=== PATIENT | female | born 1990 | race Caucasian/White ===

== ENCOUNTER 2021-02-01 20:05 | Emergency (ER) | payer OTHER, SELFPAY ==
--- NOTE | ~2021-02-01 | US_ITS ---
EXAMINATION: US OB <=14 wk fetus w TV DATE: 02/01/2021 22:01 INDICATION: Right lower quadrant abdominal pain. Positive test. TECHNIQUE: Real-time transabdominal and transvaginal pelvic ultrasound was performed. COMPARISON: None. FINDINGS: TRANSABDOMINAL ULTRASOUND: The uterus measures 8.9 x 5.1 x 3.4 cm. TRANSVAGINAL ULTRASOUND: There is no visible intrauterine gestational sac. The endometrial complex me asures 6 mm in thickness. There is an intrauterine device in expected position. The right ovary measu res 2.6 x 2.8 x 1.8 cm. The left ovary measures 2.2 x 1.3 x 1.2 cm. There is no free fluid in the pel vis. IMPRESSION: 1. No visible intrauterine gestational sac, which may be normal in early . Ectopic pregnanc y and spontaneous are not excluded. Serial beta-hCGs are recommended. 2. Intrauterine device in expected position. Reviewed, dictated and finalized at location A. IMPRESSION: 1. No visible intrauterine gestational sac, which may be normal in early pregn stacie. Ectopic and spontaneous are not excluded. Serial beta- hCGs are recommended. 2. Intrauterine device in expected position.
[2021-02-01 20:07] VITALS: BP 127/87; PULSE 67; RESP 14; TEMP 36.6; O2SAT 100
[2021-02-01 20:30] LABS: Basophils Absolute Auto 0.1 K/mm3 (0.0-0.1); Basophils Percent Auto 0.5 % (0.2-1.2); Eosinophils Absolute Auto 0.2 K/mm3 (0-0.3); Eosinophils Percent Auto 1.8 % (0-4.4); Hematocrit 37.7 % (37.0-47.0); Hemoglobin 12.7 g/dL (12.0-15.0); Immature Granulocyte Absolute 0.03 K/mm3 (0.00-0.031); Immature Granulocyte Percent A 0.3 % (0-0.5); Lymphocytes Absolute Auto 2.79 K/mm3 (0.9-3.2); Lymphocytes Percent Auto 29.6 % (18.3-44.2); Mean Corpuscular HGB Conc 33.7 g/dl (32-36); Mean Corpuscular Hemoglobin 31.8 pg (26-34); Mean Corpuscular Volume 94.5 fl (80-100); Mean Platelet Volume 9.2 fl (7.4-10.4); Monocytes Absolute Auto 0.7 K/mm3 (0.1-0.6); Monocytes Percent Auto 6.9 % (2.6-8.5); Neutrophils Absolute Auto 5.7 K/mm3 (1.3-6.7); Neutrophils Percent Auto 60.9 % (45.5-73.1); Platelet Count Result 249 k/mm3 (150-375); Red Blood Count 3.99 M/mm3 (4.2-5.4); Red Cell Distribution Width 12.4 % (11.5-14.5); White Blood Count 9.4 K/mm3 (4.5-10.0)
[2021-02-01 20:34] LABS: Add Urine Microscopic? YES; Appearance Urine Clear (Clear); Bacteria Urine Trace /hpf; Bilirubin Urine Negative (Negative); Blood Urine 3+ (Negative); Color Urine Straw (Yellow); Glucose Urine UA Negative (Negative); Ketones Urine Negative (Negative); Leukocyte Esterase Ur 1+ LEU/UL (Negative); Mucus Urine Rare /lpf; Nitrate Urine Negative (Negative); Protein Urine Negative (Negative); RBC Urine 0-2 /hpf (0-2); Specific Grav Ur 1.006 (1.001-1.035); Squamous Epithelial Cell Urine Many /hpf (Few); Urobilinogen Urine Negative mg/dL (<2.0)
--- NOTE | 2021-02-01 20:35 | PC.NURSE ---
EDMD presented to bedside. Pt presents to ED with complaints of vaginal bleeding and right side abdominal pain for the past couple days. Per pt, she has an IUD that has been in place for 2 years and recently had a positive test. Pain to right lower quadrant noted with palpation. Pain rated 5/10 at this time and pt refuses pain medication. presented to bedside. Pt denies nvd, fever and chills since onset of symptoms. States she is unsure of last period since IUD placement stopped flow.
[2021-02-01 20:42] VITALS: BP 134/81; PULSE 65; RESP 18; TEMP 36.6; O2SAT 100
--- NOTE | 2021-02-01 20:51 | ED.GENADULT ---
HPI - General Adult General Chief complaint: Vaginal Bleeding Stated complaint: states with IUD in place and bleeding Time Seen by Provider: 02/01/21 20:32 History of Present Illness HPI narrative: Patient is a 30-year-old female presents the emergency department chief complaint of abdominal pain and vaginal spotting. The patient reports she has a Mirena IUD and reports that she noticed that she started spotting over the last several days and has had pain in her right lower quadrant. Patient states the pain is worse with movement patient reports she had a positive home test. The patient states that she is concerned that she has an ectopic as she has a IUD in place. Patient reports she sees the women's care group and had her IUD placed approximately 2 years ago Related Data Allergies Allergy/AdvReac Type Severity Reaction Status Date / Time No Known Allergies Allergy Unverified 11/29/16 13:42 Review of Systems Review of Systems: Narrative: A 10 system review of systems was completed on the patient and is negative except for what is stated in the HPI. Nursing and ancillary documentation was reviewed. PMFSH Comments Past medical history significant for ectopic treated with methotrexate Social history the patient is denies illicit drug use Exam Narrative: Exam Narrative: GENERAL: Well-appearing, well-nourished, and in no acute distress. HEAD: Normocephalic, atraumatic. EYES: PERRLA and EOMI. ENT: Nares clear, no rhinorrhea or epistaxis. Mucous membranes moist. NECK: Supple. CHEST: Clear to auscultation. No respiratory distress. HEART: Regular rate and rhythm. No murmur heard. Normal peripheral pulses. ABDOMEN: Soft, tender to palpation the right lower quadrant, nondistended, normal active bowel sounds. EXTREMITIES: Normal range of motion. No edema. SKIN: Warm, dry, no rash. NEURO: No focal deficits. Alert and oriented x3. PSYCH: Normal mood and affect. Course Course Emergency Course: Ultrasound showed a 2.6 cm heterogeneous hyperechoic mass in the right pelvis this is concerning for possible ectopic. The case was discussed with Dr. Rodriguez who is on-call for the patient's [employer] group. At this time the patient opts for close outpatient follow-up the patient is to call the office in the morning and schedule an appointment for tomorrow. Vital Signs Vital signs: Vital Signs Temperature 36.6 C 02/01/21 20:07 Pulse Rate 67 02/01/21 20:07 Respiratory Rate 14 02/01/21 20:07 Blood Pressure 127/87 02/01/21 20:07 Pulse Oximetry 100 02/01/21 20:07 Temperature 36.6 C 02/01/21 20:42 Pulse Rate 73 02/01/21 22:18 Respiratory Rate 18 02/01/21 20:42 Blood Pressure 133/83 02/01/21 22:18 Pulse Oximetry 100 02/01/21 20:42 Medical Decision Making Vital Signs Vital Signs: Vital Signs Temperature 36.6 C 02/01/21 20:07 Pulse Rate 67 02/01/21 20:07 Respiratory Rate 14 02/01/21 20:07 Blood Pressure 127/87 02/01/21 20:07 Pulse Oximetry 100 02/01/21 20:07 Temperature 36.6 C 02/01/21 20:42 Pulse Rate 73 02/01/21 22:18 Respiratory Rate 18 02/01/21 20:42 Blood Pressure 133/83 02/01/21 22:18 Pulse Oximetry 100 02/01/21 20:42 Lab Data Result diagrams: 02/01/21 20:19 Labs: Lab Results 02/01/21 02/01/21 02/01/21 Range/Units 20:19 20:19 20:19 WBC 9.4 (4.5-10.0) K/mm3 RBC 3.99 L (4.2-5.4) M/mm3 Hgb 12.7 (12.0-15.0) g/dL Hct 37.7 (37.0-47.0) % MCV 94.5 (80-100) fl MCH 31.8 (26-34) pg MCHC 33.7 (32-36) g/dl RDW 12.4 (11.5-14.5) % Plt Count 249 (150-375) k/mm3 MPV 9.2 (7.4-10.4) fl Immature Gran % (Auto) 0.3 (0-0.5) % Neut % (Auto) 60.9 (45.5-73.1) % Lymph % (Auto) 29.6 (18.3-44.2) % [place] % (Auto) 6.9 (2.6-8.5) % Eos % (Auto) 1.8 (0-4.4) % Baso % (Auto) 0.5 (0.2-1.2) % Lymph # (Auto) 2.79 (0.9-3.2) K/mm3 [place]
--- NOTE | 2021-02-01 21:42 | PC.NURSE ---
pt to radiology via cart.
--- NOTE | 2021-02-01 22:01 | PC.NURSE ---
pt remains in radiology.
--- NOTE | 2021-02-01 22:07 | PC.NURSE ---
Pt returned from radiology.
[2021-02-01 22:16] VITALS: BP 132/70; PULSE 72
[2021-02-01 22:17] VITALS: BP 120/77; PULSE 68
[2021-02-01 22:18] VITALS: BP 133/83; PULSE 73
[2021-02-02 00:18] VITALS: BP 112/75; PULSE 64; RESP 18; O2SAT 99
== END 2021-02-02 00:21 | disposition home or self-care (01) ==
PROVIDERS: Emergency Provider Emergency Medicine; PCP Internal Medicine
DX: O00.90 Unspecified ectopic pregnancy without intrauterine pregnancy (principal); Z97.5 Presence of (intrauterine) contraceptive device
CPT/HCPCS: 36415; 76801; 76817; 81001; 81025; 84702; 85025; 85461; 99284

== ENCOUNTER 2021-02-02 11:44 | Outpatient (CLI) | payer OTHER, SELFPAY | END 2021-02-02 11:45 | disposition home or self-care (01) | LOC: ANHLAB 11:47 | PROVIDERS: PCP Internal Medicine; Visit Provider Obstetrics & Gynecology | DX: N91.2 Amenorrhea, unspecified (principal) | CPT/HCPCS: 36415; 84702 ==

== ENCOUNTER 2021-02-03 09:35 | Outpatient (CLI) | payer OTHER, SELFPAY | END 2021-02-03 09:36 | disposition home or self-care (01) | PROVIDERS: PCP Internal Medicine; Visit Provider Obstetrics & Gynecology | DX: N91.2 Amenorrhea, unspecified (principal) | CPT/HCPCS: 36415; 84702 ==

== ENCOUNTER 2021-02-04 09:38 | Day surgery (SDC) | payer OTHER, SELFPAY ==
[2021-02-04] VITALS (10 sets, daily range): BP systolic 110–124; BP diastolic 59–90; PULSE 48–85; RESP 10–16; TEMP 36–36.9; O2SAT 99–100
--- NOTE | ~2021-02-04 | US_ITS ---
EXAMINATION: US OB <=14 wk fetus w TV DATE: 02/04/2021 10:25 INDICATION: Ectopic . TECHNIQUE: Real-time transabdominal and transvaginal pelvic ultrasound was performed. COMPARISON: Ultrasound 02/01/2021 FINDINGS: TRANSABDOMINAL ULTRASOUND: The uterus measures 7.6 x 3.8 x 5.2 cm. TRANSVAGINAL ULTRASOUND: There is no visible intrauterine gestational sac. There is an intrauterine d evice in expected position. The right ovary measures 3.1 x 1.9 x 1.7 cm. There is a 3.6 x 3.2 x 3.1 cm mass of mixed echogenicity in the right adnexa. The left ovary measures 3.6 x 3.2 x 3.1 cm. There is no free fluid in the pelvis. IMPRESSION: 1. of unknown location. 2. Intrauterine device in expected position. 3. 3.6 cm mass of mixed echogenicity in right adnexa with increase in size from 2.6 cm on 02/01/21. T he differential diagnosis includes ectopic and less likely hemorrhagic cyst. The change in size makes pedunculated fibroid or neoplasm unlikely. Reviewed, dictated and finalized at location A. IMPRESSION: 1. of unknown location. 2. Intrauterine device in expected position. 3. 3.6 cm mass of mixed echogenicity in right adnexa with increase in size fro m 2.6 cm on 02/01/21. The differential diagnosis includes ectopic and less likely hemorrhagic cyst. The change in size makes pedunculated fibroid or neoplasm unlikely.
[2021-02-04 10:02] LABS: Basophils Absolute Auto 0.1 K/mm3 (0.0-0.1); Basophils Percent Auto 1.1 % (0.2-1.2); Eosinophils Absolute Auto 0.2 K/mm3 (0-0.3); Eosinophils Percent Auto 2.8 % (0-4.4); Hematocrit 39.4 % (37.0-47.0); Hemoglobin 12.9 g/dL (12.0-15.0); Immature Granulocyte Absolute 0.01 K/mm3 (0.00-0.031); Immature Granulocyte Percent A 0.2 % (0-0.5); Lymphocytes Percent Auto 27.8 % (18.3-44.2); Mean Corpuscular HGB Conc 32.7 g/dl (32-36); Mean Corpuscular Hemoglobin 31.2 pg (26-34); Mean Corpuscular Volume 95.4 fl (80-100); Mean Platelet Volume 9.2 fl (7.4-10.4); Monocytes Absolute Auto 0.4 K/mm3 (0.1-0.6); Monocytes Percent Auto 6.2 % (2.6-8.5); Neutrophils Percent Auto 61.9 % (45.5-73.1); Platelet Count Result 231 k/mm3 (150-375); Red Blood Count 4.13 M/mm3 (4.2-5.4); Red Cell Distribution Width 12.6 % (11.5-14.5); White Blood Count 6.5 K/mm3 (4.5-10.0)
[2021-02-04 10:13] LABS: Alanine Aminotransferase 12 U/L (4-35); Albumin Level 4.4 g/dL (3.5-5.1); Alkaline Phosphatase 50 U/L (38-126); Anion Gap 8 mmol/L (8-16); Aspartate Amino Transferase 24 U/L (14-36); Bilirubin,Total 0.7 mg/dL (0.2-1.3); Blood Urea Nitrogen 13 mg/dL (7-17); Carbon Dioxide 25 mmol/L (22-30); Chloride 107 mmol/L (98-107); Estimated CRCL calculation 90 ml/min; Estimated Glomerular Filt Rate > 60; Glucose 84 mg/dL (65-105); Potassium 4.3 mmol/L (3.4-5.0); Sodium 140 mmol/L (137-145)
[2021-02-04 10:14] LABS: Partial Thromboplastin Time 29.3 SECONDS (22.3-36.8); Prothrombin Time 13.9 Seconds (11.1-14.7)
--- NOTE | 2021-02-04 10:16 | PC.NURSE ---
Pt taken to ultrasound at this time.
[2021-02-04] MEDS: ONDANSETRON INJ 4 MG/2 ML VIAL IV PUSH (10:28)
[2021-02-04] MEDS: MORPHINE SULFATE (*CRX) 4 MG/ML INJ IV PUSH (10:28)
[2021-02-04] MEDS: FAMOTIDINE 20 MG/2 ML VIAL IV PUSH (10:28)
[2021-02-04] MEDS: SODIUM CHLORIDE 0.9% IV 1,000 ML 999 ML IV CONT (10:29)
[2021-02-04 10:30] LABS: Add Urine Microscopic? YES; Appearance Urine Cloudy (Clear); Bacteria Urine Trace /hpf; Bilirubin Urine Negative (Negative); Blood Urine 3+ (Negative); Color Urine Yellow (Yellow); Glucose Urine UA Negative (Negative); Ketones Urine Negative (Negative); Leukocyte Esterase Ur Trace LEU/UL (Negative); Mucus Urine Rare /lpf; Nitrate Urine Negative (Negative); Protein Urine 1+ mg/dL (Negative); RBC Urine >75 /hpf (0-2); Specific Grav Ur 1.017 (1.001-1.035); Squamous Epithelial Cell Urine Many /hpf (Few); Urobilinogen Urine Negative mg/dL (<2.0)
--- NOTE | 2021-02-04 12:11 | ED.GENADULT ---
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 had ultrasound Tuesday and yesterday and now presents noting increasing intensifying pain in the right adnexa radiating up into the abdomen patient notes nausea denies fever patient has history of IUD has also had an ectopic in the past patient is G6, P3 Related Data Home Medications Medication Instructions Recorded Confirmed acyclovir PRN 02/04/21 Allergies Allergy/AdvReac Type Severity Reaction Status Date / Time No Known Allergies Allergy Unverified 11/29/16 13:42 Review of Systems Review of Systems: All systems reviewed & are unremarkable except as noted in HPI and below PMFSH Past Medical History Medical History (Updated 02/04/21 @ 12:14 by Hany Ortiz PA-C) Ectopic Social History Social History (Updated 02/04/21 @ 12:12 by Hany Ortiz PA-C) Smoking status: Never smoker Exam Narrative: Exam Narrative: GENERAL: Well-appearing, well-nourished, uncomfortable and in no acute distress. HEAD: Normocephalic, atraumatic. EYES: PERRLA and EOMI. ENT: Nares clear, no rhinorrhea or epistaxis. Mucous membranes moist. CHEST: Clear to auscultation. No respiratory distress. No wheezes rales or rhonchi HEART: Regular rate and rhythm. No murmur heard. Normal peripheral pulses. ABDOMEN: Soft, tenderness in the right adnexa with voluntary guarding and rebound, nondistended, normal active bowel sounds. EXTREMITIES: Normal range of motion. No edema. SKIN: Warm, dry, no rash. NEURO: No focal deficits. Alert and oriented x3. PSYCH: Normal mood and affect. Course Course Emergency Course: Patient was evaluated the emergency department will go to the OR with Dr. Post for plan of removal of ectopic patient hemodynamically stable vital signs intact and stable patient had improvement with medications and was hydrated Consultations Consultation #1: Spoke with Dr. Post regarding the case he will take the patient to the operating room Date: 02/04/21 Time: 12:13 Vital Signs Vital signs: Vital Signs Temperature 97 F L 02/04/21 09:46 Pulse Rate 66 02/04/21 09:46 Respiratory Rate 16 02/04/21 09:46 Blood Pressure 123/81 02/04/21 09:46 Pulse Oximetry 100 02/04/21 09:46 Temperature 97 F L 02/04/21 09:46 Pulse Rate 66 02/04/21 09:46 Respiratory Rate 16 02/04/21 09:46 Blood Pressure 123/81 02/04/21 09:46 Pulse Oximetry 100 02/04/21 09:46 Medical Decision Making MDM Narrative Medical decision making narrative: Patient with ectopic evaluated the emergency department will be sent to the operating room removal of ectopic Vital Signs Vital Signs: Vital Signs Temperature 97 F L 02/04/21 09:46 Pulse Rate 66 02/04/21 09:46 Respiratory Rate 16 02/04/21 09:46 Blood Pressure 123/81 02/04/21 09:46 Pulse Oximetry 100 02/04/21 09:46 Temperature 97 F L 02/04/21 09:46 Pulse Rate 66 02/04/21 09:46 Respiratory Rate 16 02/04/21 09:46 Blood Pressure 123/81 02/04/21 09:46 Pulse Oximetry 100 02/04/21 09:46 Lab Data Result diagrams: 02/04/21 09:56 02/04/21 09:56 Labs: Lab Results 02/04/21 02/04/21 02/04/21 Range/Units 09:56 09:56 09:56 WBC 6.5 (4.5-10.0) K/mm3 RBC 4.13 L (4.2-5.4) M/mm3 Hgb 12.9 (12.0-15.0) g/dL Hct 39.4 (37.0-47.0) % MCV 95.4 (80-100) fl MCH 31.2 (26-34) pg MCHC 32.7 (32-36) g/dl RDW 12.6 (11.5-14.5) % Plt Count 231 (150
[2021-02-04] MEDS: LACTATED RINGERS 1,000 ML 30 ML IV CONT ×2 (12:30→14:58)
--- NOTE | 2021-02-04 13:12 | WPDANESEPPF ---
Anes - Initial Pre Proc Eval Procedure: Operation Date: 02/04/21 13:30 Proposed Procedures p Diagnostic Laparoscopy Pos Lap - Gustavo Rodriguez MD Date/Time: 02/04/21 13:12 Surgeon: Gustavo Rodriguez MD Pre Op Diagnosis: with IUD/ possible tubal Patient Data Age: 30 Gender: F Height: 5 ft 5 in Weight: 68.25 kg Last Vital Signs Temp 98.4 F 02/04/21 13:00 Pulse 52 L 02/04/21 13:00 Resp 16 02/04/21 13:00 BP 118/90 02/04/21 13:00 Pulse Ox 100 02/04/21 13:00 Allergies Allergy/AdvReac Type Severity Reaction Status Date / Time No Known Allergies Allergy Unverified 02/04/21 12:36 Home Medications Medication Instructions Recorded Confirmed Type acyclovir 400 mg PO BID PRN 02/04/21 02/04/21 History apple cider vinegar 300 mg PO DAILY 02/04/21 02/04/21 History lysine [L-Lysine] 500 mg PO DAILY 02/04/21 02/04/21 History multivit with min-folic acid 1 tablet PO DAILY 02/04/21 02/04/21 History [Women's Multivitamin Gummies] mv,Ca,min-iron [id number] 1 tablet PO DAILY 02/04/21 02/04/21 History [Hair,Skin and Nails] Laboratory Tests 02/04/21 02/04/21 02/04/21 09:56 09:56 09:56 WBC 6.5 K/mm3 K/mm3 (4.5-10.0) RBC 4.13 M/mm3 L M/mm3 (4.2-5.4) Hgb 12.9 g/dL g/dL (12.0-15.0) Hct 39.4 % % (37.0-47.0) MCV 95.4 fl fl (80-100) MCH 31.2 pg pg (26-34) MCHC 32.7 g/dl g/dl (32-36) RDW 12.6 % % (11.5-14.5) Plt Count 231 k/mm3 k/mm3 (150-375) MPV 9.2 fl fl (7.4-10.4) Immature Gran % (Auto) 0.2 % % (0-0.5) Neut % (Auto) 61.9 % % (45.5-73.1) Lymph % (Auto) 27.8 % % (18.3-44.2) [place] % (Auto) 6.2 % % (2.6-8.5) Eos % (Auto) 2.8 % % (0-4.4) Baso % (Auto) 1.1 % % (0.2-1.2) Lymph # (Auto) 1.80 K/mm3 K/mm3 (0.9-3.2) [place] # (Auto) 0.4 K/mm3 K/mm3 (0.1-0.6) Eos # (Auto) 0.2 K/mm3 K/mm3 (0-0.3) Baso # (Auto) 0.1 K/mm3 K/mm3 (0.0-0.1) Abs Immat Gran (auto) 0.01 K/mm3 K/mm3 (0.00-0.031) Absolute Neuts (auto) 4.0 K/mm3 K/mm3 (1.3-6.7) Absolute Nucleated RBC 0.0 K/mm3 K/mm3 (0.0-0.012) Nucleated RBC % 0.0 % % (0.0-0.2) PT 13.9 Seconds Seconds (11.1-14.7) INR 1.0 APTT 29.3 SECONDS SECONDS (22.3-36.8) Sodium 140 mmol/L mmol/L (137-145) Potassium 4.3 mmol/L mmol/L (3.4-5.0) Chloride 107 mmol/L mmol/L (98-107) Carbon Dioxide 25 mmol/L mmol/L (22-30) Anion Gap 8 mmol/L mmol/L (8-16) BUN 13 mg/dL mg/dL (7-17) Creatinine 0.70 mg/dL mg/dL (0.7-1.0) Estim Creat Clear Calc 90 ml/min ml/min Estimated GFR > 60 (59 - ) Glucose 84 mg/dL mg/dL (65-105) Calcium 9.0 mg/dL mg/dL (8.4-10.2) Total Bilirubin 0.7 mg/dL mg/dL (0.2-1.3) AST 24 U/L U/L (14-36) ALT 12 U/L U/L (4-35) Alkaline Phosphatase 50 U/L U/L (38-126) Total Protein 8.0 g/dL g/dL (6.3-8.2) Albumin 4.4 g/dL g/dL (3.5-5.1) Beta HCG, Quant 654.49 mIU/ML mIU/ML Urine Color Urine Appearance Urine pH Ur Specific [place] Urine Protein Urine Glucose (UA) Urine Ketones Ur Blood (Man) Urine Nitrate Urine Bilirubin Urine Urobilinogen Leukocyte Esterase Rfl Urine RBC Urine WBC Ur Squamous Epith Cells Urine Bacteria Urine Mucus 02/04/21 10:19 WBC RBC Hgb Hct MCV MCH MCHC RDW Plt Count MPV Immature Gran % (Auto) Neut % (Auto) Lymph % (Auto) [place] % (A
--- NOTE | 2021-02-04 13:13 | PM.IMHP ---
H&P: HPI History of Present Illness Date/Time: 02/04/21 13:13 this patient is a 30-year-old female with severe pelvic pain, pelvic mass, and positive test. We have been following her for resolving ectopic . Today her pain suddenly became worse. She had presented the emergency department. We have agreed to perform diagnostic laparoscopy to remedy her pain. We also agreed to remove her fallopian tubes. She denies any chest pain or shortness of breath. She denies any nausea, vomiting, fever, chills. She understands surgery has risks. She understands the injury during surgery can result in hospitalization, more surgery, and severe illness. She understands the risk of hemorrhage and infection. Chief Complaint: Pelvic pain Review of Systems Constitutional: Constitutional: Reports no additional constitutional complaints, Denies fatigue, Denies headache(s), Denies lethargy and Denies weakness Eyes: Eyes: Reports no additional eye complaints, Denies blurry vision and Denies photophobia ENT: Reports as per HPI, Denies headache(s) and Denies neck pain Cardiovascular: Cardiovascular: Denies chest pain, Denies diaphoresis, Denies leg edema, Denies palpitations and Denies dyspnea Respiratory: Respiratory: Denies hemoptysis, Denies dyspnea and Denies wheezing Gastrointestinal: Gastrointestinal: Denies abdominal pain, Denies melena, Denies bloating, Denies hematochezia, Denies nausea and Denies vomiting Genitourinary: Genitourinary: Reports no additional female genitourinary complaints Musculoskeletal: Musculoskeletal: Denies joint swelling, Denies neck pain, Denies numbness and Denies stiffness Neurologic: Denies Abnormal speech present, Denies confusion, Denies headache(s), Denies numbness and Denies weakness Psychiatric: Psychiatric: Denies anxiety, Denies confusion, Denies depression, Denies homicidal ideation and Denies suicidal ideation Endocrine: Endocrine: Denies fatigue and Denies palpitations Allergic/Immunologic: Allergic/Immunologic: Denies wheezing PMFSH Past Medical History Medical History (Updated 02/04/21 @ 13:16 by Gustavo Rodriguez MD) Ectopic Social History Social History (Updated 02/04/21 @ 12:12 by Hany Ortiz PA-C) Smoking status: Never smoker Meds Home Medications and Allergies Home Medications Medication Instructions Recorded Confirmed Type acyclovir 400 mg PO BID PRN 02/04/21 02/04/21 History apple cider vinegar 300 mg PO DAILY 02/04/21 02/04/21 History lysine [L-Lysine] 500 mg PO DAILY 02/04/21 02/04/21 History multivit with min-folic acid 1 tablet PO DAILY 02/04/21 02/04/21 History [Women's Multivitamin Gummies] mv,Ca,min-iron [id number] 1 tablet PO DAILY 02/04/21 02/04/21 History [Hair,Skin and Nails] Allergies Allergy/AdvReac Type Severity Reaction Status Date / Time No Known Allergies Allergy Unverified 02/04/21 12:36 Vital Signs Vital Signs - 24 hr 02/04/21 09:46 02/04/21 12:15 02/04/21 13:00 Temperature 97 F L 98.4 F Pulse Rate 66 68 52 L Respiratory Rate 16 16 16 Blood Pressure 123/81 110/67 118/90 Pulse Oximetry 100 100 100 Exam Const: General: healthy appearing, comfortable and no acute distress; No confusion Orientation/consciousness: No confusion Eyes: Direct Ophthalmoscopy: No photophobia Resp: Auscultation: clear to auscultation bilaterally, no rales, no rhonchi and no wheezes Cardio: Rate: regular rate Heart sounds: no click, no murmurs and no rubs GI: Inspection: non-distended GI Palp: No abdominal tenderness Auscultation: normal bowel sounds : External Female Exam: normal external appearance Speculum Exam - Cervix: normal appearance of the cervix Bimanual Exam- Adnexa, other: tender Neuro: General: No confusion Speech: No Abnormal speech present Extrem: General: normal to inspection, no pedal edema and no calf tenderness H&P: Results Labs Labs: Short CBC 02/04/21 Range/Units
--- NOTE | 2021-02-04 13:36 | WPDHPUPDATE1 ---
History and Physical Update Update Date/Time: 02/04/21 13:36 History and Physical has been reviewed, including an updated exam of the patient. There are NO changes in the patient's condition. Risks, benefits, and alternatives have been discussed and questions answered. Patient agrees to proceed with procedure.
--- NOTE | 2021-02-04 14:29 | P.OP_ITS ---
Procedure Note - Detailed Date of procedure: 02/04/21 Pre-op diagnosis: with IUD/ possible tubal Post-op diagnosis: same (Ectopic , unwanted fertility, contraceptive care management, hemoperitoneum) Procedure performed: Diagnostic laparoscopy, bilateral salpingectomy, IUD removal Description of procedure: The patient was taken the operating room. She was prepped and draped in the dorsal lithotomy position after induction of general anesthesia. A 5 mm left upper quadrant incision was made in the abdominal skin with a scalpel. A 5 mm trocar was inserted the intra-abdominal cavity under direct visualization of the scope. A 11 mm left lower quadrant incision was made with the scalp on the abdominal skin and a 11 mm trocar was inserted the intra-abdominal cavity under direct visualization of the scope. A 5 mm inf raumbilical incision was made with scalpel and a 5 mm trocar was inserted into the intra-abdominal cavity under direct visualization of the scope. The above findings were noted as the pelvis was examined. Hemoperitoneum was removed. The pelvis was irrigated with copious amounts normal saline and the hematomas and blood was removed thoroughly. The bilateral fallopian tubes room removed in identical fashion. The paratubal mesosalpinx was cauterized transected in the area of the distal fallopian tube at the ovary.. Was cauterized transected in a stepwise fashion around the tube to the cornua where the tube was transected and cauterized at the cornua. The tubes were placed in an endobag and taken at the left lower quadrant trocar site. The IUD was removed with a speculum and ring forceps. It was removed a little resistance. The pelvis was irrigated with copious amounts of normal saline. The pneumoperitoneum was reduced. The trocars were removed. The patient was taken recovery room stable condition. Sponge lap and needle counts were correct x2. Anesthesia: GETA Surgeon: Gustavo Rodriguez MD Estimated blood loss (mL): 20 Drains: No Packing: No Complications: No immediate complications Condition: stable Disposition: PACU Findings: Hemoperitoneum, right ectopic , IUD, normal vulva vagina and cervix. Normal appearing ovaries probed. Normal-appearing uterus.
--- NOTE | 2021-02-04 14:43 | SUR.OPER ---
PATIENT WITH WIRE NOSE RING RIGHT NARE/PAPER TAPE OVER/BILATERAL NIPPLE STUDS 2 BALLS EACH NIPPLE/REMAINS IN PLACE POST OP/PRE OP ENOCH BUSTOS SIGNED. TUBAL CONSENT/INSURANCE TUBAL FORM SIGNED AND ON CHART. PRE OP PATIENT AND STATED NO MORE CHILDREN AND WANTED STERILIZATION/VERIFIED PER Estefany DANIELS RN AND JIMENA CUMMINS CRNA DURING PER OP INTERVIEW.
[2021-02-04] MEDS: fentaNYL CITRATE INJ (*CRX) 100 MCG/2 ML VIAL 25 MCG IV PUSH ×4 (14:45→15:22)
[2021-02-04] MEDS: oxyCODONE HCL (*CRX) 5 MG TAB IR PO (16:06)
== END 2021-02-04 16:44 | disposition home or self-care (01) ==
LOC: ANHED 11:16 → ANHSURGERY 11:44
PROVIDERS: Emergency Medicine Emergency Medical Services; Emergency Provider Emergency Medicine; PCP Internal Medicine; Visit Provider Obstetrics & Gynecology
PROC: (CPT 49320; principal; 2021-02-04 13:30)
DX: O00.101 Right tubal pregnancy without intrauterine pregnancy (principal); K66.1 Hemoperitoneum; Z30.2 Encounter for sterilization; Z30.432 Encounter for removal of intrauterine contraceptive device; Z79.899 Other long term (current) drug therapy
CPT/HCPCS: 59151; 58661; 58301; 36415; 76801; 76817; 80053; 81001; 84702; 85025; 85610; 85730; 87086; 87088; 88302; 88305; 96365; 96375; 99285; A9270; J0131; J0330; J1100; J2250; J2270; J2405; J2704; J3010; J7030; J7120; Q9968

== ENCOUNTER 2025-08-25 18:03 | Emergency (ER) | payer OTHER, SELFPAY ==
--- NOTE | ~2025-08-25 | XR_ITS ---
EXAMINATION: XR ankle LT min 3V, 08/25/2025 18:24 [employer] HISTORY: rolled yesterday, MED,ANT,LAT PAIN COMPARISON: No comparisons available. Findings: No acute fracture or malalignment. No significant degenerative changes. Soft tissues unremarkable. Impression: No acute fracture or malalignment. Reviewed, dictated and finalized at location P. [employer] Impression: No acute fracture or malalignment.
--- OUTSIDE RECORDS SUMMARY | 2025-08-25 18:06 | XMS_ITS | Clinical Summary ---
Author Organization [facility] Address [address] [place] [address] Phone Care Team Providers Care Business Continuity Specialist Name Role Phone Provider, Unknown Primary Care Provider Unavaila ble Social History Tobacco Use Types Packs/Day Years Used Date Smoking Tobacco: Never Assessed Comments Unknown Sex and Gender Information Value Date Recorded Sex Assigned at Not on file Legal Sex Female 9:52 PM [employer] Gender Identity Not on file Sexual Orientation Not on file Plan of Treatment Not on file Care Teams Business Continuity Specialist Relationship Specialty Start Date End Date Provider, Unknown UNKNOWN PCP - General 11/26/16
[2025-08-25 18:11] VITALS: BP 130/76; PULSE 108; RESP 20; TEMP 37; O2SAT 100
--- NOTE | 2025-08-25 18:13 | ED_ITS ---
HPI - Extremity Injury (Lower) General Chief Complaint: Extremity Injury, Lower Stated Complaint: Left Ankle Injury Time Seen by Provider: 08/25/25 18:13 Source: patient Mode of arrival: ambulatory Limitations: no limitations History of Present Illness HPI Narrative: 34 y/o female presnted for c/o left ankle pain and swelling after rolling the ankle yesterday morning. endorses slipping on ice and heard a 'pop.' Has been able to walk but reports pain with weight bearing and ROM. Using a rollator for support and wore a copper ankle sleeve. Also took ibp yesterday, none today. Denies bruising, numbness, tingling weakness or deformity. Related Data Home Medications ?Medication ?Instructions ?Recorded ?Confirmed ?Last Taken ?Type bupropion HCl 150 mg 24 hr tablet, mg PO 08/25/25 Unk nown History extended release escitalopram oxalate 20 mg tablet mg 08/25/25 Unknown History Allergies Allergy/AdvReac Type Severity Reaction Status Date / Time No Known Allergies Allergy Verified 08/25/25 18:19 Review of Systems Review of Systems: CONSTITUTIONAL: Denies body aches, fever, chills EYES: Denies visual changes ENT: Denies rhinorrhea, congestion CARDIOVASCULAR: Denies chest pain, palpitations, or edema. RESPIRATORY: Denies cough or dyspnea. SKIN: Denies rash, itching, or wounds. MUSCULOSKELETAL: reports left ankle pain NEUROLOGIC: Denies headache, numbness, tingling, or weakness. All systems reviewed & are unremarkable except as noted in HPI and below PMFSH Past Medical History Medical History (Updated 08/25/25 @ 18:55 by Faith Waldrop, [employer]) Ectopic Social History Social History (Updated 02/04/21 @ 12:12 by Hany Ortiz, PAWoodrow) Smoking status: Never smoker Comments At time of signature, I have reviewed and agree with nursing past medical, surgical, social and family history unless otherwise noted. Please see nursing chart for further information. There is no relevant family history pertinent to the presenting complaint Exam Narrative: GENERAL: Well-appearing, well-nourished, and in no acute distress. CHEST: Speaks in full sentences. No respiratory distress. HEART: Regular rate and rhythm. Normal and equal peripheral pulses. EXTREMITIES: Left foot and ankle has normal strength and sensation, slightly decreased range of motion with flexion/extension/rotation of ankle, endorses pain with movement. Moderate swelling to lateral left ankle; tender with palpation. No ecchymosis, No open wounds,or obvious deformity; alignment normal, pulse palpable and equal bilaterally, skin warm, dry, pink. Capillary refill less than 3 seconds. SKIN: Warm, dry, no rash. NEURO: Alert and oriented x3. PSYCH: Normal mood and affect Course Course Level of Care: Express Care Visit Vital Signs Vital signs: Vital Signs Temperature 98.6 F 08/25/25 18:11 Pulse Rate 108 H 08/25/25 18:11 Respiratory Rate 20 08/25/25 18:11 Blood Pressure 130/76 08/25/25 18:11 Pulse Oximetry 100 08/25/25 18:11 Oxygen Delivery Room Air 08/25/25 18:11 Temperature 98.6 F 08/25/25 18:11 Pulse Rate 108 H 08/25/25 18:11 Respiratory Rate 20 08/25/25 18:11 Blood Pressure 130/76 08/25/25 18:11 Pulse Oximetry 100 08/25/25 18:11 Oxygen Delivery Room Air 08/25/25 18:11 MDM MDM Narrative Medical decision making narrative: Discussed physical exam findings and xray. EDGAR applied. Advised supportive m easures and signs/symptoms to go to the ER. Pt is appropriate for outpt treatment and f/u. Differential Diagnosis Differential Diagnosis: ankle sprain, strain, fracture, contusion Imaging Data Radiologist's impression: ITS Impressions Ankle X-Ray 08/25/25 18:37 Impression: No acute fracture or malalignment. Discharge Plan Discharge Clinical Impression: Ankle sprain and strain Patient Disposition: Home Condition: Stable Instructions: Ankle Sprain (ED) Additional Instructions: Rest and elevate the left leg; bear weight as tolerated Apply ice 15-20 minute intervals several times a day Keep it wrapped with EDGAR or use a soft ankle splint Motrin 800mg every 8 hours, alternate with Tylenol 1000mg every 8 hours as needed Follow up with your primary care provider as needed in 1-2 weeks Go to ER for worsening symptoms or concerns Patient Language: Tongan Prescriptions: No Action escitalopram oxalate 20 mg tablet bupropion HCl 150 mg tablet extended release 24 hr PO Follow-up/Referrals: UNKNOWN,DOCTOR [Primary Care Provider] Stand Alone Forms: Work/School Release IP
== END 2025-08-25 19:01 | disposition home or self-care (01) ==
PROVIDERS: Emergency Provider Nurse Practitioner Family
DX: S93.402A Sprain of unspecified ligament of left ankle, initial encounter (principal); S96.912A Strain of unspecified muscle and tendon at ankle and foot level, left foot, initial encounter; W00.0XXA Fall on same level due to ice and snow, initial encounter
CPT/HCPCS: 73610; 99213; G0463

== ENCOUNTER 2025-08-29 09:05 | Emergency (ER) | payer OTHER, SELFPAY ==
--- NOTE | 2025-08-29 09:08 | ED.LOWEXIN ---
HPI - Extremity Injury (Lower) General Chief Complaint: Extremity Injury, Lower Stated Complaint: Left Ankle Recheck Time Seen by Provider: 08/29/25 09:07 Source: patient Mode of arrival: ambulatory Limitations: no limitations History of Present Illness HPI Narrative: patient is a 34-year-old female that presents for left ankle pain. Patient was seen here for this same complaint 4 days ago and had negative x-ray. Ulises wrap was applied and was told to follow-up with PCP or go to the ER if symptoms are worsening. Patient has been walking on ankle. Related Data Home Medications ?Medication ?Instructions ?Recorded ?Confirmed ?Last Taken ?Type escitalopram oxalate 20 mg tablet mg 08/25/25 Unknown History Allergies Allergy/AdvReac Type Severity Reaction Status Date / Time No Known Allergies Allergy Verified 08/29/25 10:07 Review of Systems Review of Systems: All systems reviewed & are unremarkable except as noted in HPI and below Constitutional: Constitutional: Denies body ache(s), Denies chills, Denies fatigue, Denies fever(s), Denies headache(s), Denies malaise and Denies weakness Eyes: Eyes: Denies blurry vision, Denies irritation and Denies loss of vision ENT: Denies otalgia, Denies headache(s), Denies nasal discharge, Denies sinus pain and Denies sore throat Cardiovascular: Cardiovascular: Denies chest pain, Denies irregular heart rhythm and Denies dyspnea Respiratory: Respiratory: Denies dyspnea Gastrointestinal: Gastrointestinal: Denies abdominal pain, Denies melena, Denies hematochezia, Denies diarrhea, Denies nausea and Denies vomiting Musculoskeletal: Musculoskeletal: Denies back pain, Denies myalgias, Reports arthralgias and Reports joint swelling Integumentary/Breasts: Skin/Breast: Denies pruritus and Denies rash Neurologic: Denies headache(s), Denies loss of vision and Denies weakness Psychiatric: Psychiatric: Reports no additional psychiatric complaints Endocrine: Endocrine: Denies fatigue PMFSH Past Medical History Medical History Ectopic Social History Social History Smoking status: Never smoker Comments At time of signature, agree with nursing past medical, surgical, social and family history. There is no relevant family history pertinent to the presenting complaint. Exam Const: General: cooperative, healthy appearing, comfortable, no acute distress and well nourished Nutritional Appearance: well nourished Orientation/consciousness: patient oriented x3 Limitations: no limitations HENMT: Head: normal to inspection, normocephalic and atraumatic Ears: hearing grossly normal bilaterally and external ears normal Face/Nose/Sinus: Normal external nose present, normal facial exam and face symmetric Face and sinus: normal facial exam and face symmetric Mouth: Yes lip normal Eyes: General: appearance normal, both eyes and all related structures Alignment and Position: alignment normal and position normal Periorbital: periorbital findings normal Eyelids: eyelids normal Pupils: Equal, round and reactive pupils present EOM: EOMs intact bilaterally Neck: Neck: normal visual inspection, full ROM and supple Chest: Chest palpation & inspection: normal inspection of the chest Resp: Effort & Inspection: normal respiratory effort and able to speak in complete sentences Auscultation: clear to auscultation bilaterally Cardio: Rate: regular rate Rhythm: regular rhythm Heart sounds: S1 normal heart sound present and S2 normal heart sound present GI: Inspection: normal to inspection Skin: General skin exam: normal color and no rashes or lesions noted Neuro: General: patient oriented x3 and moves all extremities Cranial nerves: Yes Equal, round and reactive pupils present Speech: normal speech Gait exam (Neuro): Normal gait present Extrem: General: normal to inspection, full ROM and no edema Left lower extremity: lower leg Details: normal to inspection; no tenderness and no localized swelling, ankle Details: normal to inspection, tenderness Location: of the lateral malleolus, swelling Details: laterally, abnormal ROM Details: pain with active ROM Details: with eversion; not with plantar flexion, not with dorsiflexion and not with inversion and ecchymosis lateral ; achilles tendon exam normal and foot Details: normal capillary refill, toes with normal ROM and vascular exam Details: dorsalis pedis pulse present and normal capillary refill; no tenderness Psych: Appearance: grossly normal and well kempt Mental Status: mental status grossly normal Speech and movement: Normal speech and movement present Affect: normal affect Attitude: cooperative Thought process: Normal thought process present Course Course Emergency Course: Patient is aware of diagnosis, understands and agrees to treatment plan. Anticipatory guidance given. Patient agrees to follow-up as directed and is aware of reasons to seek care at the emergency department. Portions of this record may have been created with voice recognition software Level of Care: Express Care Visit MDM MDM Narrative Medical decision making narrative: will provide crutches and ortho follow-up. Discussed that sprain it can take several weeks to heal and walking on ankle would delay healing. Pt well hydrated appearing, in no respiratory distress, hemodynamically stable. Recommend supportive care. The patient is stable at time of discharge the clinical impression was discussed and the patient was given the opportunity to ask questions, which were addressed as completely as possible given the information available at present. Anticipatory guidance and return to care precautions were discussed and the importance of primary care follow-up was stressed and encouraged. The patient voiced understanding of the plan, indications to return, and the need for follow-up. Exam findings show no acute concerns or changes Patient is appropriate for outpatient treatment and follow-up. Differential Diagnosis Differential Diagnosis: Differential diagnostic considerations for lower extremity injury include ankle sprain/strain, acute internal derangement of knee, fracture of femur, fracture of hip, puncture wound of foot, fracture of toe, fracture of ankle, tendon rupture (achilles/patellar/quadriceps). Medical Records I have reviewed the following patient records and this information was taken into consideration when formulating the assessment and plan.: previous clinic visits Discharge Plan Discharge Clinical Impression: Ankle sprain and strain Patient Disposition: Home Condition: Stable Instructions: Ankle Sprain (ED) Additional Instructions: Minimize activities that aggravate the condition The RICE protocol. Follow the RICE protocol as soon as possible after your injury: Rest your ankle by not walking on it. Ice should be immediately applied to keep the swelling down. It can be used for 20 to 30 minutes, three or four times daily. Do not apply ice directly to your skin. Compression dressings, bandages or ulises-wraps will immobilize and support your injured ankle. Elevate your ankle above the level of your heart as often as possible during the first 48 hours. Medication: Nonsteroidal anti-inflammatory drugs (NSAIDs) such as ibuprofen and naproxen can help control pain and swelling. Because they improve function by both reducing swelling and controlling pain, they are a better option for mild sprains than narcotic pain medicines. Please schedule a follow-up visit with your personal physician for further evaluation and treatment within 1week OR If your symptoms persist, change or worsen significantly before you can contact your personal physician then please, without delay, go to the emergency department for further evaluation. Patient Language: Welsh Prescriptions: New ibuprofen 800 mg tablet 800 mg PO TID Qty: 60 0RF No Action escitalopram oxalate 20 mg tablet Follow-up/Referrals: Leodan Edwards MD [Physician, Orthopedics] - 3 Days Stand Alone Forms: Work/School Release IP Time of Disposition: 10:21
[2025-08-29 09:25] VITALS: BP 114/70; PULSE 61; RESP 20; TEMP 36.6; O2SAT 100
== END 2025-08-29 10:32 | disposition home or self-care (01) ==
PROVIDERS: Emergency Provider Nurse Practitioner Family
DX: S93.402D Sprain of unspecified ligament of left ankle, subsequent encounter (principal); S96.912D Strain of unspecified muscle and tendon at ankle and foot level, left foot, subsequent encounter; X58.XXXD Exposure to other specified factors, subsequent encounter
CPT/HCPCS: 99213; G0463